=== PATIENT | female | born 1940 | race Caucasian/White ===

== ENCOUNTER 2020-10-25 13:13 | Emergency (ER) | payer MEDICARE, OTHER ==
--- NOTE | 2020-10-25 13:56 | RAD ---
XR Hand Rt 3 View STANDARD History: Pain after fall Comparison: None Findings: Hand is intact. 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 Incomplete evaluation of the wrist. Severe degenerative disease of the thumb carpometacarpal joint. Impression: 1. No acute fracture or malalignment of the hand. 2. 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 3. Incomplete evaluation of the wrist. If there is wrist pain, dedicated wrist radiographs nathaniel [email or web address]
--- NOTE | 2020-10-25 14:11 | RAD ---
RIGHT FOREARM 2 VIEWS: HISTORY: Forearm pain status post fall. FINDINGS: There is some slight undulation to the distal ulna which may be the sequelae of an old injury. There are no signs of any acute fracture or dislocation. IMPRESSION: No acute fracture. POS: VIGNESH
[2020-10-25 14:19] LABS: #Eosinphils 0.2 thou/uL (0.0-0.7); #Neutrophils 8.3 thou/uL (1.40-6.50); %Basophils 0.4 % (0.0-1.0); %Eosinophils 1.9 % (0.0-10.0); %Lymphocytes 9.7 % (21.0-51.0); %Monocytes 9.4 % (0.0-10.0); %Neutrophils 78.6 % (42.0-75.0); Hemoglobin 11.4 g/dL (12.0-16.0); Mean Corpuscular HGB CONC 32.7 g/dL (32.0-36.0); Mean Corpuscular Hemoglobin 31.8 pg (27.0-31.0); Mean Corpuscular Volume 97.1 fL (78.0-98.0); Platelet Count 295 thou/uL (130-400); RBC Distribution Width 13.1 % (11.5-14.5); White Blood Cell (WBC) Count 10.6 thou/uL (4.8-10.8)
--- NOTE | 2020-10-25 14:27 | RAD ---
PORTABLE CHEST: HISTORY: Injury status post fall. COMPARISON: None available. FINDINGS: Heart size is within normal limits. There are atherosclerotic changes of a tortuous aorta. Lungs sh ow some increased interstitial markings which appear to be largely chronic in nature. Interstitial c hanges of the bases are probably on the basis of atelectasis. Slightly prominent markings of the rig ht upper lobe. It is difficult to exclude some subtle infiltrative change, but these changes also ma y be chronic in nature. IMPRESSION: Probable chronic-appearing lung change. No signs of rib fractures or pneumothorax. POS: VIGNESH
[2020-10-25 14:29] LABS: ALT (SGPT) 24 U/L (8-55); AST (SGOT) 19 U/L (5-34); Albumin 3.6 g/dL (3.4-4.8); Alkaline Phosphatase 83 U/L (40-110); Anion Gap 14 mmol/L (10-20); BUN (Urea Nitrogen) 24 mg/dL (9.8-20.1); Bilirubin, Total 0.2 mg/dL (0.2-1.2); Calc. Creatinine Clearance 0 mL/min (70-130); Calcium 8.8 mg/dL (7.8-10.44); Carbon Dioxide 28 mmol/L (23-31); Chloride 108 mmol/L (98-107); Glucose 117 mg/dL (83-110); Potassium 4.1 mmol/L (3.5-5.1); Protein, Total 6.6 g/dL (6.0-8.3); Sodium 146 mmol/L (136-145)
--- NOTE | 2020-10-25 14:33 | CT ---
CT Brain WO Con History: Fall Comparison: CT brain November 27, 2018 Findings: No acute hemorrhage or infarct. No midline shift or mass effect. Ventricular size and extra -axial CSF spaces are similar. Slightly progressive microvascular ischemic changes along the left richards radiata. Calvarium is intact. Paranasal sinuses and mastoids are clear. Impression: Chronic findings. No acute intracranial abnormality.
--- NOTE | 2020-10-25 14:37 | CT ---
CT Cervical Spine WO Con History: Fall Comparison: None. Findings: Severe degenerative disease of the atlantodental interval. No acute cervical spine fracture or malalignment. No acute traumatic facet joint widening. Mild scarring both lung apices. No paraspinal muscle hematoma. Impression: No acute cervical spine fracture or malalignment.
== END 2020-10-25 16:30 ==
LOC: ERS 13:13
DX: S00.03XA Contusion of scalp, initial encounter (principal); S40.021A Contusion of right upper arm, initial encounter; I10 Essential (primary) hypertension; Z79.899 Other long term (current) drug therapy; E78.5 Hyperlipidemia, unspecified; W19.XXXA Unspecified fall, initial encounter
CPT/HCPCS: 36415; 70450; 71045; 72125; 80053; 85025; 93005